=== PATIENT | female | born 1980 | race Caucasian/White ===

== ENCOUNTER → 2019-09-07 09:05 | Outpatient (CLI) | payer SELFPAY ==
[2014-11-03 16:46] VITALS: BMI 20.9
[2019-09-07 10:46] LABS: Creatinine, Serum 0.74 mg/dL (0.55-1.02); EST Glomerular Filtration Rate 93 mL/min (>60); Est Glom Filt Rate - Afr Amer 113 mL/min (>60); Thyroid Stim Hormone (TSH) 1.18 uIU/mL (0.358-3.74)
== END ==
PROVIDERS: PCP Family Medicine; Referring Provider Family Medicine; Visit Provider Family Medicine
DX: K59.00 Constipation, unspecified (principal)
CPT/HCPCS: 36415; 82565; 84443

== ENCOUNTER 2019-09-29 08:51 | Day surgery (SDC) | payer SELFPAY, OTHER ==
[2019-09-23 07:35] VITALS: BMI 20.9
--- NOTE | 2019-09-23 07:49 | HP_ITS ---
Intake Vital Signs 09/23/19 BMI 20.9 09/23/19 Height 5 ft 7 in 09/23/19 Weight: 150 lb 09/23/19 BMI 23.5 09/23/19 BP 104/71 09/23/19 Blood Pressure Location Rt brachial 09/23/19 Position Sitting 09/23/19 Respiration 18 09/23/19 Pulse 76 09/23/19 Pulse Source Monitor 09/23/19 Temp 98.8 F 09/23/19 Temp Source Oral 09/23/19 Pulse Oximetry (%) 100 09/23/19 Oxygen Delivery Method room air Intake Visit Reasons: abd pain, constipation Chief Complaint: constipation Training And Development Officer Required: No Is patient in pain?: No Allergies No Known Allergies Allergy (Verified 09/23/19 07:35) Medications NK 09/23/19 [History Confirmed 09/23/19] [facility] Medical History (Updated 09/23/19 @ 07:[address] Master Stevens MD) Abdominal pain (Acute) Constipation (Acute) Abdominal pain (Acute) Constipation (Acute) History of back problems (Acute) Surgical History (Updated 09/23/19 @ 07:30 by Chiquita Vides) No history of previous surgery (Acute) Family History (Updated 09/23/19 @ 07:31 by Chiquita Vides) Mother Arthritis Social History (Updated 09/23/19 @ 07:[address] Master Stevens MD) Smoking Status: Never smoker alcohol intake: never substance use type: does not use HPI HPI HPI: CARISSA OSBORNE is a 38 F who presents to the office today for HPI HPI Surgical H&P: Yes HPI: CARISSA OSBORNE, is a 38 F who presents to the office today for surgical consultation regarding progressive severe constipation. The patient also the past couple weeks has noted right upper quadrant discomfort pressure. 38-year-old female. She has had lifelong severe constipation. She denies bright red blood per rectum or melena. She has no family history of colon polyps or colon cancer. She denies family history of Crohn's disease or ulcerative colitis. The patient is referred by Dr. Aaron Kenney her primary care physician because the patient's symptoms are escalating. A written copy of my surgical consult and recommendations will be returned to her. Additional history suggests that Dr. Saldivar has seen her in the past because of rectal rectal prolapse. By previous report that apparently resolved. She also states that she has had a pressure discomfort over the past couple weeks in the epigastric right upper quadrant area. She states that when her constipation becomes very severe this can be escalated. She denies any particular food intolerance. She does not take any acid reducing medications. She does eat cheese fairly routinely. I have asked her to cease. She is [place] and prefers herbs and alternative treatment options. She has not had any weight loss. She has not had any children. 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 She has not had any expected weight loss. She has not previously had any abdominal surgery ROS General General: No weight change, appetite, fatigue, colon cancer, breast cancer or weakness HEENT HEENT: No difficulty swallowing, eye injury, eye surgery, swollen glands or hoarseness Endo Endocrine: No thyroid disease, diabetes mellitus, thyroid cancer, Hair loss, heat intolerance or cold intolerance Skin Skin: No rash or changing moles Breast Breast: No left breast lump, right breast lump, nipple discharge, breast pain, abnormal mammogram, abnormal US or breast enlargement Musc Musculoskeletal: Yes back problems; no arthritis, rheumatoid arthritis, gout or joint pain Cardio Cardiovascular: No murmur, pacemaker, heart disease, atrial fibrillation, high blood pressure, heart attack, heart stent, palpitations, shortness of breat with exertion or chest pain Psych Psychiatric: No depression, anxiety or hearing voices Resp Respiratory: No shortness of breath, No sleep apnea, No cough, No COPD, No asthma, No emphysema, No wheezing Gastro Gastrointestinal: Yes abdominal pain, No nausea or vomiting, No diarrhea, Yes constipation, No blood in stool, No acid reflux, No hemorrhoids, No ulcers, No gallbladder problem, No black,tarry stools Jeremiah Hematologic: No blood thinners, No blood disorders, No bleeding, No anemia, No blood clots Neuro Neurologic: No system reviewed and no additional complaints, except as docu, No as per HPI, No abnormal walking, No abnormal hearing, No abnormal movements, No abnormal speech, No behavioral changes, No burning sensations, No confusion, No seizure-like activity, No unsteadiness, No dizziness, No localized weakness, No frequent falls, No headache(s), No lack of coordination, No loss of vision, No memory loss, No numbness, No other visual disturbances, No radiating pain, No restless legs, No sensory deficit, No fainting, No tingling, No tremor(s), No weakness, No other Exam Const General: cooperative, healthy appearing, comfortable, no acute distress Nutritional Appearance: average body habitus Orientation: alert, awake [facility] Head: normal to inspection Chest Chest palpation & inspection: normal inspection of the chest Breast Palpation: No nipple discharge Resp Effort & Inspection: normal respiratory effort Auscultation: clear to auscultation bilaterally Cardio Rate: regular rate Rhythm: regular rhythm Heart Sounds: no murmurs GI Inspection: normal to inspection Palpation: soft, no hepatosplenomegaly Auscultation: normal bowel sounds Neuro General: alert, awake Extrem General: no calf tenderness bilaterally Psych Affect: normal affect Assessment & Plan Problems 1. Constipation, unspecified constipation type K59.00 2. Right upper quadrant abdominal pain R10.11 Plan 38-year-old female with what sounds like a lifelong history of severe constipation. She has never had a colonoscopy. She has had previous problems with rectal prolapse. There is no family history of concern. Over the past couple weeks she has had problems with epigastric and right upper quadrant pressure discomfort. She thinks that it is aggravated when she is severely constipated. She does not particularly have any food intolerance. She has not had a history of gastritis or peptic ulcer disease. She does not correlate any escalation of that discomfort with eating. She does not have a known history of gallstones. I propose for her colonoscopy with possible biopsy or polypectomy is indicated. She has not had a previous one. She is aware of the technique, benefit, risk, alternatives. I would anticipate likely random biopsies. I have offered the patient consideration for a gallbladder ultrasound because of the right upper quadrant pain which is a newer component of her symptoms. She states that she will consider this testing. Because of the patient's severe constipation I anticipate a 2-day bowel prep. Anticipate monitored anesthesia care. I appreciate the opportunity of assisting with her surgical care Cc: Dr. Aaron Stevens M.D., F.A.C.S. Orders Orders: Colonoscopy Today K59.00, R10.9 Coding Level of Care Code 30005 Diagnoses Constipation, unspecified constipation type K59.00 ??Constipation type: unspecified constipation type Right upper quadrant abdominal pain R10.11 ??Abdominal location: right upper quadrant 09/23/19 0749 <Electronically signed by Master coronado MD> Date _ Master Stevens MD I have re-examined the patient. There are no clinical changes since date of exam.
[2019-09-29 09:24] VITALS: BP 114/69; PULSE 71; RESP 16; TEMP 36.6; O2SAT 97; BMI 22.8
[2019-09-29 09:27] LABS: Internal QC Validated? YES +Cl - CLEAR BKGD; Pregnancy, Urine Negative Negative
[2019-09-29] MEDS: Lactated Ringers 1,000 ML 100 ML IV (09:30)
--- NOTE | 2019-09-29 10:00 | COLBX_PTH ---
PATIENT: CARISSA OSBORNE LOC: EN U#:[id number] AGE/SX: 38/F ROOM: RE09/29/[address]: Dr. Master Stevens MD : 1980 BED: DIS: 09/29/2019 SPEC #: [id number] RECD: 09/29/19 10:48 STATUS: DAVID SAMI #: [id number] NELLA: 09/29/19 10:[address]: Master Stevens DEPT: SURGICAL PATHOLOGY RECD BY: Mauro Hernandez ENTERED: 09/29/19 13:32 SP TYPE: COLON BX OTHR DR: Dr. Aaron Kenney MD Tissues: Cecum, NOS Procedures: Surgery Specimen Level IV HEADER OPERATION: Colonoscopy (MAC) PRE-OP DIAGNOSIS: Constipation, right upper quadrant abdominal pain TISSUE SUBMITTED: Cecum biopsy MICROSCOPIC DIAGNOSIS Cecum, biopsy: Fragments of colonic mucosa with pigment laden macrophages, consistent with melanosis coli. SJ:dionne 09/30/19 MICROSCOPIC DESCRIPTION Slides are reviewed. GROSS DESCRIPTION Received in fixative is one container labeled with the patient's name and designated cecum biopsy. The specimen consists of two irregular fragments of light jovel soft tissue that in aggregate measure 1 x 0.4 x 0.1 cm. The specimen is totally submitted in one cassette. / SJ:rg 09/29/19 TC:5 CPT: 62523
[2019-09-29 10:27] VITALS: BP 103/66; BP 114/69; PULSE 74; RESP 16; TEMP 36.4; O2SAT 98
--- NOTE | 2019-09-29 10:28 | OP.CCLET_ITS ---
09/29/2019 Aaron Kenney [address] [place] [address] Re : Colonoscopy procedure for Ely Grimes Dear Dr. Kenney This procedure was performed on Sunday, September 29, 2019. My impressions and recommendations are as follows: Impressions : - Tortuous colon. - Melanosis in the colon. Biopsied in the cecum - The examination was otherwise normal. Recommendations : - Discharge patient to home. - Resume previous diet. - Continue present medications. - Telephone my office for pathology results in 1 week. No findings that would correlate with right upper quadrant abdominal pain - Repeat colonoscopy at age 51. My findings are described in the full procedure note, which is enclosed. If I can be of further assistance, please feel free to contact me at Doctor phone number(s): Work: . Sincerely, Master Stevens MD 09/29/2019 10:28:04 AM This report has been signed electronically.
--- NOTE | 2019-09-29 10:28 | OP.COLON_ITS ---
Patient Name: Ely Grimes Procedure Date: 09/29/2019 9:56 AM Date of : 1980 Age: 38 Procedure: Colonoscopy Indications: Abdominal pain in the right upper quadrant Providers: Master Stevens MD Referring MD: Aaron Kenney Medicines: See the Anesthesia note for documentation of the administered medications Patient Profile: Last Colonoscopy: none. The patient's first colonoscopy is today. Complications: No immediate complications. Procedure: Pre-Anesthesia Assessment: - Prior to the procedure, a History and Physical was performed, and patient medications and allergies were reviewed. The patient's tolerance of previous anesthesia was also reviewed. The risks and benefits of the procedure and the sedation options and risks were discussed with the patient. All questions were answered, and informed consent was obtained. Prior Anticoagulants: The patient has taken no previous anticoagulant or antiplatelet agents. ASA Grade Assessment: II - A patient with mild systemic disease. After reviewing the risks and benefits, the patient was deemed in satisfactory condition to undergo the procedure. After I obtained informed consent, the scope was passed under direct vision. Throughout the procedure, the patient's blood pressure, pulse, and oxygen saturations were monitored continuously. The Colonoscope was introduced through the anus and advanced to the cecum, identified by appendiceal orifice and ileocecal valve. The colonoscopy was performed without difficulty. The patient tolerated the procedure well. The quality of the bowel preparation was good. The ileocecal valve and the appendiceal orifice were photographed. Scope In: 10:07:04 AM Scope Withdrawal Time 0 hours 6 minutes 33 seconds Scope Out: 10:19:24 AM Total Procedure Duration Time 0 hours 12 minutes 20 seconds Findings: The perianal and digital rectal examinations were normal. The colon (entire examined portion) was moderately tortuous. A diffuse area of severe melanosis was found in the transverse colon, at the hepatic flexure, in the ascending colon and in the cecum. Biopsies were taken with a cold forceps for histology. The exam was otherwise without abnormality. Impression: - Tortuous colon. - Melanosis in the colon. Biopsied in the cecum - The examination was otherwise normal. Recommendation: - Discharge patient to home. - Resume previous diet. - Continue present medications. - Telephone my office for pathology results in 1 week. No findings that would correlate with right upper quadrant abdominal pain - Repeat colonoscopy at age 51. Procedure Code(s): --- Professional --- 25834, Colonoscopy, flexible; with biopsy, single or multiple Diagnosis Code(s): --- Professional --- K63.89, Other specified diseases of intestine R10.11, Right upper quadrant pain Q43.8, Other specified congenital malformations of intestine CPT copyright 2017 [employer]. All rights reserved. The codes documented in this report are preliminary and upon supervisor cutting department review may be revised to meet current compliance requirements. Master Stevens MD 09/29/2019 10:28:04 AM This report has been signed electronically. Number of Addenda: 0 Note Initiated On: 09/29/2019 9:56 AM
[2019-09-29 10:31] VITALS: BP 105/69; BP 114/69; PULSE 67; RESP 16; O2SAT 97
[2019-09-29 10:35] VITALS: BP 105/65; BP 114/69; PULSE 56; RESP 16; O2SAT 100
[2019-09-29 10:40] VITALS: BP 104/70; BP 114/69; PULSE 58; RESP 16; O2SAT 100
[2019-09-29 10:43] VITALS: BP 105/67; BP 114/69; PULSE 61; RESP 16; TEMP 36.3; O2SAT 100
== END 2019-09-29 11:19 | disposition home or self-care (01) ==
LOC: EN 08:56 → AC 08:58
PROVIDERS: Anesthesiology; PCP Family Medicine; Referring Provider Family Medicine; Visit Provider Surgery
PROC: 0DJD8ZZ Inspection of Lower Intestinal Tract, Via Natural or Artificial Opening Endoscopic (ICD-10-PCS; CPT 45378; principal; 2019-09-29 09:55)
DX: R10.11 Right upper quadrant pain (principal); K63.89 Other specified diseases of intestine; Q43.8 Other specified congenital malformations of intestine; K59.00 Constipation, unspecified
CPT/HCPCS: 45380; 81025; 88305; J7120; J2405